=== PATIENT | female | born 1965 | race Caucasian/White ===

== ENCOUNTER 2018-10-24 09:08 | Emergency (ER) | payer BC ==
[2018-10-24] MEDS ORDERED: MECLIZINE HCL 25 MG TABLET PO ONE (10:19)
--- NOTE | 2018-10-24 10:22 | ER Document Report ---
ED Medical Screen (RME) - General Chief Complaint: Dizziness Stated Complaint: DIZZINESS Time Seen by Provider: 10/24/18 10:19 Primary Care Provider: RENEA VICK MD [Primary Care Provider] - Follow up as needed - [facility] Notes: 10/24/18 10:19 Patient is a 53-year-old female with a history of IBS and cholecystectomy who presents complaining of 2 episodes of dizziness/vertigo prior to arrival and c ontinuing to feel somewhat lightheaded. Patient states that she was sitting at her computer when the room started spinning. Patient states that this lasted for 60 seconds. She then had another episode thereafter that lasted mother 60 seconds. Patient states that the dizziness has since resolved, but recurs if she turns her head left or right really quickly. She has had nasal congestion recently. Denies drug allergies, IV drug abuse, alcohol. Denies PAULINO, fever, neck pain, URI, CP, syncope, palpitations, SUAZO, dyspnea, cough, SOB, Abd pain, dysuria, back pain, or rash. I have treated and performed a rapid initial assessment of this patient. A comprehensive ED assessment and evaluation of the patient, analysis of test results and completion of medical decision making process will be conducted by additional ED providers. PHYSICAL EXAMINATION: GENERAL: Well-appearing, well-nourished and in no acute distress. A&Ox4. Answers questions appropriately. Eyes: PERRLA, EOMI b/l. no obvious nystagmus. LUNGS: Breath sounds clear to auscultation bilaterally and equal. No wheezes rales or rhonchi. HEART: Regular rate and rhythm without murmurs, rubs, gallops. Extremities: No cyanosis, clubbing, or edema b/l. NEUROLOGICAL: Normal speech, normal gait. Cranial nerves grossly intact. NIH 0. PSYCH: Normal mood, normal affect. - Related Data Allergies/Adverse Reactions: No Known Allergies Allergy (Unverified 10/24/18 09:11) Past Medical History - Social History Chew tobacco use (# tins/day): No - vaping Renal/ Medical History: Denies: Hx Peritoneal Dialysis Past Surgical History: Reports: Hx Section - x3, Hx Cholecystectomy Physical Exam - Vital signs Vitals: Temp Pulse Resp BP Pulse Ox 98.1 F 89 18 150/88 H 95 10/24/18 09:14 10/24/18 09:14 10/24/18 09:14 10/24/18 09:14 10/24/18 09:14 Course - Vital Signs Vital signs: Temp Pulse Resp BP Pulse Ox 98.1 F 89 18 150/88 H 95 10/24/18 09:14 10/24/18 09:14 10/24/18 09:14 10/24/18 09:14 10/24/18 09:14 Doctor's Discharge - Discharge Referrals: RENEA VICK MD [Primary Care Provider] - Follow up as needed
[2018-10-24 10:47] LABS: ABSOLUTE EOSINOPHILS # (AUTO) 0.1 10^3/uL (0.0-0.6); ABSOLUTE LYMPHOCYTES (AUTO) 1.8 10^3/uL (0.5-4.7); ABSOLUTE MONOCYTES (AUTO) 0.4 10^3/uL (0.1-1.4); ABSOLUTE NEUT (AUTO) 3.8 10^3/uL (1.7-8.2); BASOPHILS % (AUTO) 0.5 % (0-2); EOSINOPHILS % (AUTO) 1.4 % (0-6); HEMATOCRIT 43.6 % (36.0-47.0); HEMOGLOBIN 14.5 g/dL (12.0-15.5); LYMPHOCYTES % (AUTO) 29.1 % (13-45); MEAN CORPUSCULAR HGB CONC 33.2 g/dL (32.0-36.0); MEAN CORPUSCULAR VOLUME 87 fl (80-97); MONOCYTES % (AUTO) 6.8 % (3-13); PLATELET COUNT 252 10^3/uL (150-450); RED BLOOD COUNT 4.99 10^6/uL (3.72-5.28); RED CELL DISTRIBUTION WIDTH 13.3 % (11.5-14.0); SEGMENTED NEUTROPHILS % (AUTO) 62.2 % (42-78); TOTAL CELLS COUNTED % (AUTO) 100 %; WHITE BLOOD COUNT 6.1 10^3/uL (4.0-10.5)
[2018-10-24 10:54] LABS: APPEARANCE,URINE CLEAR; BILIRUBIN,URINE NEGATIVE (NEGATIVE); COLOR,URINE YELLOW; GLUCOSE, URINE NEGATIVE (NEGATIVE); KETONES,URINE NEGATIVE (NEGATIVE); LEUKOCYTE ESTERASE,URINE NEGATIVE (NEGATIVE); NITRITE,URINE NEGATIVE (NEGATIVE); PROTEIN,URINE NEGATIVE (NEGATIVE); URINE SPECIFIC GRAVITY 1.011; UROBILINOGEN,URINE NEGATIVE mg/dL (<2.0)
[2018-10-24 11:06] LABS: ANION GAP 7 (5-19); BLOOD UREA NITROGEN 10 mg/dL (7-20); CARBON DIOXIDE 30 mmol/L (22-30); CHLORIDE 102 mmol/L (98-107); GLUCOSE 92 mg/dL (75-110); POTASSIUM 4.2 mmol/L (3.6-5.0); SODIUM 138.8 mmol/L (137-145)
--- NOTE | 2018-10-24 13:44 | EKG REPORT ---
SEVERITY:- NORMAL ECG - SINUS RHYTHM : Confirmed by: Abad Arredondo MD 24-Oct-2018 13:42:52
[2018-10-24 13:50] VITALS: BP 123/75
--- NOTE | 2018-10-24 15:28 | ER Document Report ---
Entered by PIETRO ENRIQUEZ SCRIBE 10/24/18 1257 Acting as scribe for:SUKHI MORALES DO ED General - General Chief Complaint: Dizziness Stated Complaint: DIZZINESS Time Seen by Provider: 10/24/18 10:19 Primary Care Provider: JORDAN AYALA MD [ACTIVE STAFF] - Follow up as needed Notes: Patient is a 53-year-old female with history of vertigo presenting to the emergency department complaining of dizziness patient states that she was doing her homework this morning at about 0730 and she began feeling lightheaded. Patient states that she felt like she was "spinning". Patient states that she blinked a few times, she got up to try and alleviate the spinning sensation and then felt very unstable. Patient states that she did get up and continue to feel very unstable. Patient denies having any cough, runny nose, headache, trauma, neck pain, trouble breathing, nausea, vomiting, blurred vision, numbness, tingling, exacerbation when turning head or eyes, difficulty swallowing. - Related Data Allergies/Adverse Reactions: No Known Allergies Allergy (Unverified 10/24/18 09:11) Past Medical History - General Information source: Patient - Social History Smoking Status: Never Smoker - Vaping Cigarette use (# per day): No Chew tobacco use (# tins/day): No - vaping Frequency of alcohol use: None Drug Abuse: None Family History: Reviewed & Not Pertinent Patient has suicidal ideation: No Patient has homicidal ideation: No Endocrine Medical History: Reports: Hx Diabetes Mellitus Type 2 Past Surgical History: Reports: Hx Section - x3, Hx Cholecystectomy Review of Systems - Review of Systems Constitutional: No symptoms reported EENT: See HPI. denies: Blurred vision, Nose discharge, Sinus discharge, Difficu lty swallowing Cardiovascular: See HPI, Dizziness Respiratory: No symptoms reported Gastrointestinal: See HPI. denies: Nausea, Vomiting Genitourinary: No symptoms reported Female Genitourinary: No symptoms reported Musculoskeletal: No symptoms reported. denies: Other - Neck pain Skin: No symptoms reported Hematologic/Lymphatic: No symptoms reported Neurological/Psychological: See HPI. denies: Numbness, Tingling -: Yes All other systems reviewed and negative Physical Exam - Vital signs Vitals: Temp Pulse Resp BP Pulse Ox 98.1 F 89 18 150/88 H 95 10/24/18 09:14 10/24/18 09:14 10/24/18 09:14 10/24/18 09:14 10/24/18 09:14 - Notes Notes: PHYSICAL EXAM GENERAL: Alert, interacts well. No acute distress. Positive [place]pike sign right sided. Negative [place] sign left-sided. HEAD: Normocephalic, atraumatic. EYES: Pupils equal, round, and reactive to light. Extraocular movements intact. ENT: Oral mucosa moist, tongue midline. NECK: Full range of motion. Supple. Trachea midline. LUNGS: Clear to auscultation bilaterally, no wheezes, rales, or rhonchi. No respiratory distress. HEART: Regular rate and rhythm. No murmurs, gallops, or rubs. ABDOMEN: Soft, non-tender. Non-distended. Bowel sounds present in all 4 quadrants. No guarding, rigidity, or rebound. EXTREMITIES: Moves all 4 extremities spontaneously. No edema, radial and dorsalis pedis pulses 2/4 bilaterally. No cyanosis. NEUROLOGICAL: Alert and oriented x3. Normal speech. Biceps and patellar DTRs 2+ bilaterally. Finger-nose and [id number] test intact. Cranial nerves II through XII grossly intact. PSYCH: Normal affect, normal mood. SKIN: Warm, dry, normal turgor. No rashes or lesions noted. Course - Re-evaluation Re-evalutation: 10/24/18 13:14 CBC unremarkable,'s BMP unremarkable, urinalysis unremarkable, EKG nonischemic. [place]-Hallpike positive to the right, negative to the left. No focal neurologic deficits, no evidence of stroke, no suspicion for cerebellar infarct. Patient is significantly improved after meclizine. Patient states she had a similar episode when she was younger and this feels identical. Patient will be discharged to home with nasal steroids, meclizine and advised to use daily antihistamine such as Zyrtec as a preventative measure. - Vital Signs Vital signs: Temp Pulse Resp BP Pulse Ox 97.9 F 78 15 123/75 99 10/24/18 13:47 10/24/18 13:47 10/24/18 13:47 10/24/18 13:47 10/24/18 13:47 - Laboratory Result Diagrams: 10/24/18 10:31 10/24/18 10:31 - EKG Interpretation by Me Additional EKG results interpreted by me: 10/24/18 13:14 EKG shows sinus rhythm at a rate of 69, normal axis, normal intervals, no ST segment elevations or depressions, no T wave inversions per my interpretation. Discharge - Discharge Clinical Impression: Vertigo Condition: Stable Disposition: HOME, SELF-CARE Additional Instructions: Vertigo You have experienced an episode of vertigo -- a whirling dizziness which may be accompanied by nausea and vomiting or staggering. Vertigo is often caused by an irritation of the inner ear, in which case it is called labyrinthitis. It can also be a symptom of a degenerating inner ear, nerve damage, or brain injury. Your physician has evaluated you to determine whether any further testing is necessary. Vertigo is often treated with dramamine or meclizine. These medications are helpful, but stronger medication may be needed if you are vomiting. Rest in bed. You should not drive or operate machinery until completely better. It may take one to three weeks for recovery. If there are new symptoms, such as decreased hearing or vision, severe headache, weakness or faintness, or confusion, call the physician. Prescriptions: Meclizine HCl [Motion Relief] 25 mg PO QIDP PRN #30 tablet PRN Reason: Mometasone Furoate [Nasonex] 1 spray NS Q12 #1 spray.pump Forms: Return to Work Referrals: JORDAN AYALA MD [ACTIVE STAFF] - Follow up as needed I personally performed the services described in the documentation, reviewed and edited the documentation which was dictated to the scribe in my presence, and it accurately records my words and actions.
== END 2018-10-24 13:50 | disposition home or self-care (01) ==
LOC: ER 09:08
DX: R42 Dizziness and giddiness (principal); E11.9 Type 2 diabetes mellitus without complications
CPT/HCPCS: 36415; 80048; 81001; 85025; 93005; 93010; 99284